=== PATIENT | male | born 1960 | race Caucasian/White ===

== ENCOUNTER 2017-11-30 07:57 | Day surgery (SDC) | payer MEDICARE, MEDICAID ==
[2017-11-27 11:59] VITALS: BMI 29.8
[2017-11-30] MEDS ORDERED: ceFAZolin 1 gm in NS 2 GM/200 ML BAG IVPB ONE (09:41)
[2017-11-30] MEDS ORDERED: EPINEPHrine 1:1000 Nasal Sol(30mL) ONE (09:41)
[2017-11-30] MEDS ORDERED: Midazolam 2 MG/2 ML VIAL ONE (09:53)
[2017-11-30] MEDS ORDERED: Propofol 10 mg/ml Inj (20 ML) ONE ×2 (09:53→10:45)
[2017-11-30] MEDS ORDERED: Succinylcholine Chloride 20 mg/ml Syr (5 ml) IV ONE (10:44)
[2017-11-30] MEDS ORDERED: Neostigmine Methylsulfate 3mg/3ml Syringe IV ONE (12:07)
[2017-11-30] MEDS ORDERED: HYDROmorphone 0.5 mg/0.5 ml ISec IVP PRN (12:47)
[2017-11-30] MEDS ORDERED: Bupivacaine HCl 0.25% PF (30 ml) Inj ONE (12:48)
[2017-11-30] MEDS ORDERED: HYDROmorphone 0.5 mg/0.5 ml ISec ONE ×2 (12:51→13:15)
--- NOTE | 2017-11-30 13:13 | RAD ---
PROCEDURE: Intraoperative fluoroscopy HISTORY: RT. KNEE MEDIAL MENISCUS TEAR COMPARISON: Not available TECHNIQUE: Intraoperative fluoroscopy was provided for repair of medial meniscal tear. Total time of fluoroscopy was 30.6 seconds. FINDINGS: Multiple fluoroscopic spot films are submitted. IMPRESSION: Fluoroscopy provided.
--- NOTE | 2017-11-30 13:18 | PCM.ANESB7 ---
Adductor Canal Block - Adductor Canal Block Date of Procedure: 11/30/17 Anesthiologist: Geovanna Pre-Procedure Diagnosis: s/p right knee arthroscopy Post-Procedure Diagnosis: same Procedure Performed: Adductor Canal Block Right - Procedure Adductor Canal Block: The procedure was explained to the patient that it is for the post-operative pain management. Consent was obtained after a thorough discussion with the patient regarding the benefits and possible complications of local anesthetic adductor canal block of the femoral nerve. Standard monitors were applied to the patient. Time-out was held with the circulating nurse to confirm the appropriate block. After applying supplemental oxygen, the patient was placed in supine position with and the operative leg was flexed slightly at the knee and externally rotated as needed, and was kept anatomically stable. The mid- thigh of the right lower extremity was exposed. The ultrasound transducer was then applied transversely along the medial aspect, about midway down the thigh and the femoral artery and vein were identified in appropriate relation with the sartorius muscle. At this time, the femoral nerve was visualized lateral to the femoral artery within the canal. After thorough identification, this area area was prepped with Chloroprep solution. At this point, a #22 gauge Stimuplex 4-inch needle was inserted in-plane in a [id number] orientation, and advanced toward the femoral nerve. Advancement was performed carefully under direct ultrasound visualization. After negative aspiration, 3cc of 0.25% Bupivacaine was injected and this was followed with 27cc of 0.25% Bupivacaine. Intermittent aspiration and injection. Negative aspirations and no paresthesia. Under ultrasound guidance the local anesthetics were observed spreading around the femoral nerve. The needle was removed intact and sterile dressing was applied. The patient had stable vital signs, was conscious and in no apparent distress. The patient tolerated the femoral nerve block well with stable vital signs.
[2017-11-30] MEDS ORDERED: Lactated Ringer's 1,000 ML IV ONE (13:30)
[2017-11-30 15:53] VITALS: BP 127/70; PULSE 88; RESP 18; TEMP 98; O2SAT 20
--- NOTE | 2018-01-01 04:59 | OP ---
PROCEDURE DATE: 11/30/2017 PREOPERATIVE DIAGNOSES: Right knee, 1. Medial meniscal tear. 2. Chondromalacia/early degenerative joint disease changes. 3. Loss of range of motion/loss of terminal extension. 4. Large anterior osteophyte at anterior tibia causing loss of extension. 5. Significant synovitis. 6. Medial plica band. POSTOPERATIVE DIAGNOSES: Right knee, 1. Medial meniscal tear (complex large tear involving midbody to posterior horn with significant hypermobility and meniscal capsular separation). 2. Lateral meniscal tear (free edge tear midbody to anterior horn/posterior horn hypermobility/meniscal capsular separation). 3. Chondromalacia/early degenerative changes with areas of full thickness cartilage loss at the trochlea measuring 12 mm width x 10 mm length, grade 3 chondromalacia medial femoral condyle and patella. 4. Loss of range of motion/loss of terminal extension (lacking 10 degrees extension). 5. Large anterior osteophyte at anterior tibial articular surface blocking terminal extension. 6. Significant synovitis throughout all three compartments. 7. Hypertropic and inflamed fat pad. 8. Symptomatic medial plica band. PROCEDURE: Right knee arthroscopic, 1. Medial meniscal repair with concomitant debridement. 2. Lateral meniscal repair/stabilization. 3. Chondroplasty and microfracture of trochlea zone of full-thickness cartilage injury. 4. Chondroplasty of medial femoral condyle and patella grade 3 chondromalacia. 5. Resection of large anterior tibial osteophytes. 6. Removal of multiple loose bodies. 7. Extensive synovectomy (including synovectomy in all three compartments/resection of hypertropic fat pad causing impingement/resection of symptomatic plica band). 8. Intraarticular PRP injection. SURGEON: Shravan Lucia MD EYEGLASS MAKER: Juan Luis Pickett PA-C. JUSTIFICATION FOR EYEGLASS MAKER: Juan Luis Pickett is a certified physician assistant director, whose skilled surgical service was an absolute necessity for successful completion of the procedure as he provided skilled surgical assistance with positioning of patient, positioning of extremity, management of surgical lópez, retraction of neurovascular structures, facilitating all-inside medial meniscal and lateral meniscal repairs, facilitating partial medial meniscectomy and debridement, facilitating microfracture of trochlea, facilitating chondroplasty and extensive synovectomy in all three compartments, wound closure, fitting and placement of postop hinged knee brace. Juan Luis Pickett was present for the entire case and was an absolute necessity for successful completion of the procedure. TYPE OF ANESTHESIA: General endotracheal anesthesia with a postop regional nerve block placed by anesthesia staff in PACU. ESTIMATED BLOOD LOSS: 3 mL. COMPLICATIONS: None. SPECIMEN: Large fragments of bone and loose bodies including the large anterior osteophyte from the tibia that was resected measuring well over 2 cm sent to pathology. DRAINS: None. DISPOSITION: The patient was extubated and transferred to PACU in stable condition. IMPLANTS: [employer] all-inside sequent meniscal repair system with placement of 4 implants/one kit opened for the lateral meniscus all-inside repair/stabilization, 8 implants/2 kits opened for the all-inside medial meniscal repair. INDICATIONS FOR SURGERY: The patient is a 57-year-old male with a past medical history significant for hypertension and hypercholesterolemia who presented to my office for the first time under my care on 11/14/2014 with left greater than right knee pain. X-rays in this office showed mild early DJD changes with joint spaces that were still well maintained with no loss of joint space yet. Both knees exhibited a large anterior osteophyte formation at the tibial surface anteriorly. At that point in time, he was only missing about 2 to 3 degrees on the left knee and had no lack of range of motion on the right. Over time, he required conservative treatment in the form of bracing and multiple cortisone injections. During his conservative treatment over time, he started to develop more and more loss of left knee range of motion and loss of terminal extension. He underwent left knee arthroscopic surgery on 06/06/2017 consisting of left knee arthroscopic 1. Partial medial meniscectomy. 2. Extensive synovectomy (including synovectomy of three compartments, resection of medial plica band, debridement and resection of hypertropic fat pad). 3. Chondroplasty. 4. Removal of multiple loose bodies measuring greater than 1 cm. 5. Resection of large anterior osteophyte blocking terminal extension. 6. Manipulation under anesthesia. He tolerated the procedure well and was able to regain full range of motion from full extension to full flexion, and returned to praying in a standing position and kneeling in a standing position during his Islamic prayers once again. He was so happy with his outcome and was able to return to work. Over the past few months, he started to develop the same loss of terminal extension and complaints in the right knee. The right knee underwent multiple cortisone injections in the office over the past two years. Each injection provided him with near complete resolution of pain. He also underwent hyaluronic acid injections which also helped with his pain. Eventually his pain continued to progress to the point where it was disabling and providing him difficulty with ADLs and a significant negative impact on his quality of life. He was having difficulty performing his prayers Islamically. Over his physical exam and followup in the office, he eventually got to the point where he was lacking almost 5 to 7 degrees of terminal extension in the right knee. X-rays in the office showed that the anterior osteophyte was enlarging. Finally, he was indicated for left knee arthroscopic surgery. He was indicated for left knee arthroscopic medial meniscus repair versus partial meniscectomy, lateral meniscus repair versus partial meniscectomy, chondroplasty, possible microfracture, resection of the large anterior osteophytes, manipulation under anesthesia, extensive synovectomy, and all related indicative procedures. The risks, benefits, and alternatives of the procedure were discussed in length with the patient with the risks included but not limited to infection, neurovascular damage, need for further surgery, failure of repairs, advanced chondrolysis and accelerated degenerative wear, need for further surgery including total knee arthroplasty, development of chronic pain and disability, development of blood clots including DVT and PE, anesthesia reactions including . After answering all of his questions, he stated that he understood the risks and wished to proceed with surgery. He watched surgical animation videos and diagnoses animation videos and stated that he had a good understanding of his multiple diagnoses as well as the procedures to be done. He was referred to his primary care physician, Dr. Magaly Cespedes, for preadmission testing and medical clearance and the procedure was scheduled at [facility], [place] on 11/30/2017. PROCEDURE IN DETAIL: The patient was identified in the preoperative holding area and the right knee was marked for surgery. Once again as described above, the risks, benefits, and alternatives of the procedure were discussed at length with the patient in his chinik language of Latvian for which I am fluent and informed consent was obtained. After a brief discussion with anesthesia staff, perioperative IV antibiotics in the form of 2 gm Ancef were administered, and the patient was taken to the operating room and placed on a well-padded operating room table with all bony prominences and superficial neurovascular structures well-padded. An initial time out was done with the surgeon, anesthesia staff, OR staff, all in agreement with the patient, procedure being done and extremity being operated on. General anesthesia was administered without any difficulty or complication. Examination under anesthesia was then done. EXAMINATION UNDER ANESTHESIA: Right knee with limited range of motion compared to contralateral knee. He had full flexion but had limited extension lacking approximately 5 to 7 degrees terminal extension. There was significant patellofemoral crepitant throughout range of motion. There was a reproducible click that was palpable and visualized at the inferomedial aspect of the patella representing a symptomatic medial plica band. No evidence of instability with negative anterior drawer, negative posterior drawer, negative Harleen, negative reverse Harleen, negative pivot shift, negative reverse pivot shift, negative opening to medial or lateral joint lines at 0 to 30 degrees varus and valgus stress. Patella with normal tracking, but as stated before, there was significant crepitance. CONTINUATION OF PROCEDURE: Tourniquet was placed high on the right thigh but never inflated. The right lower extremity was prepped and draped in standard sterile fashion. Normal saline 50 mL was used to insufflate the knee joint. Anterolateral portal was created with stab incision through skin down subcutaneous tissue down to the level of the capsule. The blunt arthroscopic trocar and cannula were inserted into the suprapatellar pouch and insufflation of arthroscopic fluid was begun. Arthroscopic camera was inserted and spinal needle localization was used to determine optimal entry point for anterior medial portal. Anteromedial portal was created with stab incision through skin down to subcutaneous tissue, down to the level of the capsule. An accessory cannula was inserted into the anteromedial portal, and the knee joint was copiously irrigated for better visualization and removal of debris. Diagnostic arthroscopy was then done. DIAGNOSTIC ARTHROSCOPY: Attention was first turned towards the suprapatellar pouch where there was no evidence of adhesions or loose bodies or other pathology. Attention was then turned towards the patellofemoral joint where immediately seen was grade 3 to 4 chondromalacia of almost the entire patella with loose fibrillated cartilage fragments. The trochlea exhibited a large area of full-thickness cartilage loss starting at its central component, extending into the periphery with the central area of full thickness cartilage loss, measuring 12 mm in width x 9 mm in length. Extending from the inferomedial aspect of patella to the medial retinaculum was a thickened hypertropic symptomatic medial plica band causing cartilaginous changes on the medial femoral condyle. Throughout the anterior aspect of the knee joint and all three compartments, there was hypertropic, inflamed, reddened synovial lining and synovitis. At the anterior aspect of the knee joint, there was a hypertropic and inflamed fat pad causing further impingement anteriorly. The larger anterior osteophyte was identified immediately sitting anterior to the ACL and PCL, and bringing the knee into extension, you can see how the large osteochondral defect at the central aspect of the trochlea was actually caused by the large anterior osteophyte bumping into it and injuring the underlying cartilage. Attention was then turned towards the medial compartment where a complex oblique horizontal medial meniscus tear starting at the posterior midbody extending to the posterior horn was identified. There was also a secondary zone of injury at the meniscal capsular separation with hypermobility of the posterior horn of the medial meniscus. Attention was then turned towards the medial femoral condyle and medial tibial plateau where overall there was grade 2 to 3 chondromalacia with fibrillated cartilage at the weightbearing aspect of the medial femoral condyle. Attention was then turned towards the intercondylar notch where as stated before there was a large anterior osteophyte extending from the anterior tibia, striking the trochlea in full extension. ACL and PCL were intact. Attention was then turned towards the lateral compartment where a free edge tear of the midbody to the anterior horn of the lateral meniscus was identified as well as a peripheral red-red zone meniscal capsular separation tear resulting in hypermobility that was small. There was not hypermobility though we are able to sublux the posterior horn to the lateral meniscus beyond the midpoint of the lateral femoral condyle anteriorly. CONTINUATION OF PROCEDURE: ARTHROSCOPIC ALL-INSIDE LATERAL MENISCUS REPAIR: With the use of the arthroscopic shaver and radiofrequency ablation, a partial lateral meniscectomy was carried out debriding the fibrillated and unrepairable lateral meniscus anterior horn and free edge tearing in the white-white zone. Once this was carried out to satisfaction and a smooth contour was achieved, attention was then turned towards the all-inside lateral meniscus repair. With the [employer] all-inside meniscal repair system, 4 implants were placed in total anterior to the popliteal hiatus, restoring stability to the hypermobility of the posterior horn lateral meniscus. Placing the 4 implants with good capsular sided fixation resulted in alternating horizontal and vertical mattress sutures, 3 in total. This provided enough stability for a successful all-inside lateral meniscus repair/stabilization. Attention was then turned towards the medial compartment. As stated before, there was significant complex tearing involving the white-white zone as well as degenerative complex tearing with a peripheral tear that resulted in hypermobility of the medial meniscus posterior horn. With the use of arthroscopic shaver and radiofrequency ablation, a partial medial meniscectomy was carried out removing the irreparable and unstable meniscal fragments. Once this was carried out to satisfaction, a smooth contour remained with stable meniscal tissue and good quality tissue remaining, all in all approximately 25% of the medial meniscus was resected. The posterior horn as stated before exhibited significant hypermobility and instability. With the use of the all-inside meniscal repair system from [employer], stabilization of the posterior horn was carried out. We placed 4 implants at the superior aspect of the posterior horn remnant tissue with good stability achieved and 4 implants with good capsular sided fixation resulting in alternating three horizontal and vertical mattress sutures at the posterior horn. This provided good stability. These steps were repeated at the inferior aspect of the posterior horn with placement of four more implants providing good hoop stresses and reinforcing the meniscus repair. Once this was carried out to satisfaction and a smooth contour and stable medial meniscus remained, we then turned our attention to the chondroplasty of the medial femoral condyle. ARTHROSCOPIC CHONDROPLASTY OF MEDIAL FEMORAL CONDYLE AND PATELLA: With the use of arthroscopic shaver and radiofrequency ablation, chondroplasty of the medial femoral condyle and patella were carried out establishing a smooth cartilage surface removing the fibrillated and unstable cartilage fragments. ARTHROSCOPIC EXTENSIVE SYNOVECTOMY: An arthroscopic synovectomy was carried out with the use of arthroscopic shaver and radiofrequency ablation that was beyond what is considered usual and customary for better visualization during arthroscopic surgery. Indeed, there was significant pathology associated with the fat pad, plica bands and three compartment synovitis. With the use of the arthroscopic shaver and radiofrequency ablation, an extensive synovectomy was carried out in all three compartments removing the hypertropic and inflamed synovial lining while maintaining good hemostasis. We then turned our attention to debriding and debulking with resection of the hypertropic fat pad that was further causing impingement anteriorly. We then used the arthroscopic shaver and radiofrequency ablation to debride and resect the symptomatic medial plica band. Once this was completed to satisfaction and good hemostasis was achieved, we then turned our attention to the resection of the large anterior osteophyte. ARTHROSCOPIC RESECTION OF LARGE TIBIAL OSTEOPHYTE: With the use of an osteotome inserted through the anterior medial portal, we were able to get under the large osteophyte and with the help of lateral fluoroscopic imaging, free the osteophyte with the osteotome and we were able to remove it in its entirety. Some of the anterior root attachment of the medial meniscus has to be freed from the piece to gain access but all in all, the medial meniscus tissue was still stable with no destabilization of the anterior root resulting. The osteophyte was removed in its entirety and brought to the back table to be measured, measuring 2 cm x 2 cm in size. Throughout the process, there were further small loose bodies found in the intercondylar notch, measuring approximately 1 cm each, 3 in total that were resected and also sent to pathology along with the large osteophyte. Attention was then turned towards treatment of the large full-thickness injury to the cartilage of the trochlea. With the use of the arthroscopic curette, arthroscopic shaver and radiofrequency ablation, a chondroplasty of the trochlea was carried out resecting the unstable cartilage fragment and establishing a stable rim of cartilage. With the use of the [employer] PowerPick, multiple microfracture holes were then placed with good bloody return and good spacing between the microfracture holes. A successful microfracture was carried out with good bloody return to the full thickness zone of injury to the trochlea. Once this was completed with the satisfaction, the extensive synovectomy was carried out further removing all the pain generating inflamed tissue. Final arthroscopic pictures were taken of both the medial and lateral meniscus repairs and stabilization, the microfracture of the trochlear, the chondroplasty of the medial femoral condyle and patella, the resection of the large anterior osteophyte and the synovectomy and resection of fat pad and medial plica. Once final imaging was taken, all arthroscopic debris and fluid were removed from the knee joints. INTRAARTICULAR PRP INJECTION: With the help of anesthesia staff, 7 mL of PRP were obtained from a peripheral venous stick and spun in Sipwise centrifuge yielding 7 mL of PRP. At the end of the procedure after all the arthroscopic fluid was removed, the 7 mL in its entirety of PRP were injected under direct visualization intraarticularly. Once this was completed to satisfaction, the arthroscopic portals were reapproximated with plain 2-0 Vicryl suture for deep tissue, followed by plain 3-0 Monocryl suture for skin. Sterile dressings were applied. A layer of sterile cast padding was applied from the toes up to the superior thigh, followed by a layer of compressive Isidro wrap from the toes up to the superior thigh. The knee was then fitted and placed in a postop hinged knee brace provided by my office. The patient was then extubated and transferred to PACU in stable condition, having tolerated the procedure well. JUSTIFICATION FOR BILLING AND CODIN. An all-inside medial and lateral meniscus repairs were carried out with concomitant debridement, and therefore, medial and lateral meniscal repairs were coded and billed. 2. Chondroplasty and microfracture of the trochlear was carried out, and therefore, was coded and billed. 3. Chondroplasty of the medial femoral condyle and patella were carried out but were considered inclusive to the other procedures, and therefore, were not coded and billed. 4. Resection of the anterior large osteophyte was done successfully providing him with more range of motion, and therefore, was coded and billed. 5. Multiple loose bodies were removed as well, and therefore, they were coded and billed. 6. An arthroscopic extensive synovectomy of all three compartments was carried beyond what is usual and customary for better visualization during arthroscopic surgery. This included resection of the hypertropic fat pad that was causing anterior impingement, resection of the symptomatic medial plica band, resection and debridement of the hypertropic synovial lining/synovitis in all three compartments. Therefore, an extensive synovectomy of all three compartments was coded and billed. 7. Intraarticular PRP injection was done at the end of the procedure to aid with healing and joint preservations, and therefore, was coded and billed. 8. A postop hinged knee brace was fitted and placed on the patient provided by my office at the end of the procedure to aid with range of motion and ambulation while protecting the meniscus repairs and microfracture healing while making it safe for the patient. Therefore the postop brace was placed out of medical necessity at the end of procedure and was coded and billed. DISPOSITION: The patient will be discharged to home once he was recovered from anesthesia. The patient was given a prescription for Percocet for pain control. The patient was given prescription for Lovenox as DVT prophylaxis starting postoperative day #1 for two weeks 40 mg subcutaneous injections once daily. He will be weightbearing as tolerated with the brace on at all times locked in extension. He will start physical therapy immediately to regain his range of motion. He will follow up in my office within one week and already has his postoperative appointment setup. He will contact me directly with any questions or concerns. Shravan Lucia MD
== END 2017-11-30 18:00 | disposition home or self-care (01) ==
LOC: C.SDS 07:57
PROVIDERS: ATTEND Student in an Organized Health Care Education/Training Program
DX: S83.206D Unspecified tear of unspecified meniscus, current injury, right knee, subsequent encounter (principal); S83.231D Complex tear of medial meniscus, current injury, right knee, subsequent encounter; M23.41 Loose body in knee, right knee
CPT/HCPCS: 29877; C1751; J0690; J1170; J2001; J2250; J2405; J2704; J2710; J2765; J3010; J7120